=== PATIENT | female | born 1985 | race Hispanic/Latino ===

== ENCOUNTER 2018-10-17 06:47 | Inpatient (IN) | payer OTHER ==
[2018-10-17] MEDS ORDERED: LACTATED RINGERS 1,000 ML ONE (07:02)
[2018-10-17] MEDS ORDERED: AMPICILLIN/NS 2 GM/100 ML 2 GM/100 ML BAG IV ONE ×2 (07:03→09:00)
[2018-10-17] MEDS ORDERED: SUBLIMAZE ONE (07:03)
--- NOTE | 2018-10-17 07:12 | History and Physical Report ---
History of Present Illness Date of examination: 10/17/18 (pt arrived with c/o ctx; Fully dilated on arrival) Date of admission: 10/17/18 06:59 History of present illness: EDC Confirmation: 10/17/2018 Gestational Age: 6 6/7 weeks Past History : 3 Term Births: 2 Premature Births: 0 Living Children: 2 Para: 2 Mult. Births: 0 Prev : 0 Prev. attempt? 0 Aborta: 0 Elect. Ab: 0 Spont. Ab: 0 Ectopics: 0 # 1 Delivery date: 12/30/2012 Weeks Gestation: term Delivery type: Anesthesia type: epidural Delivery location: [facility] Sex: Female weight: 6-11 Comments: denies complications # 2 Delivery date: 06/2015 Weeks Gestation: term Delivery type: Anesthesia type: epidural Delivery location: [facility] Sex: Female weight: 7-8 Comments: denies complications Past Medical History: Negative Past Medical History Past Surgical History: Negative Past Surgical History Past Medical History Surgery (Non-quill collector): Negative Past Surgical History Abnormal PAP: negative REVA Exposure: negative Infertility: negative Uterine Anomaly: negative Uterine Surgery (not C/S): negative Other Gynecologic Problems: negative Infection History Hx of STD: none HIV Risk Eval: low risk Hepatitis B Risk Eval: low risk Personal hx. of genital herpes: no Partner hx. of genital herpes: no Rash, Viral, or Febrile illness since last LMP? no Varicella/Chicken Pox Status: Previous Disease TB Risk: no Genetic History Congenital Heart Defect: Mom: no Dad: no Jori Disease: Mom: no Dad: no Thalassemia Mom: no Dad: no Neural Tube Defect Mom: no Dad: no Down's Syndrome Mom: no Dad: no Alfonso-Sachs Mom: no Dad: no Sickle Cell Disease/Trait Mom: no Dad: no Hemophilia Mom: no Dad: no Muscular Dystrophy Mom: no Dad: no Cystic Fibrosis Mom: no Dad: no Rosetta Chorea Mom: no Dad: no Mental Retardation Mom: no Dad: no Fragile X Mom: no Dad: no Other Genetic/Chromosomal Disorder Mom: no Dad: no Child w/other defect Mom: no Dad: no Enviromental Exposures Xray Exposure: no Medication, drug, or alcohol use since LMP: no Chemical/Other Exposure: no Exposure to Cat Liter: no Hx of Parvovirus (Fifth Disease): no Occupational Exposure to Children: none Active Medications (reviewed today): None Current Allergies (reviewed today): No known allergies Past History - Obstetrical History Expected Date of Delivery: 10/17/18 Actual Gestation: 40 Week(s) 0 Day(s) : 3 Para: 2 Hx # Term Pregnancies: 2 Number of Pregnancies: 0 Spontaneous Abortions: 0 Induced : 0 Number of Living Children: 2 Medications and Allergies Allergies Allergy/AdvReac Type Severity Reaction Status Date / Time No Known Allergies Allergy Verified 10/17/18 07:44 Active Meds: Active Medications Ephedrine Sulfate (Ephedrine Sulfate) 10 mg IV Q2M PRN PRN Reason: Hypotension Fentanyl (Sublimaze) 100 mcg IV Q2H PRN PRN Reason: Labor Pain Oxytocin/Sodium Chloride (Pitocin/Ns 20 Unit/1000ml Drip) 20 units in 1,000 mls @ 125 mls/hr IV DIRECT ISAÍAS Lactated Ringer's (Lactated Ringers) 1,000 mls @ 125 mls/hr IV DIRECT ISAÍAS Ampicillin Sodium (Ampicillin/Ns 1 Gm/50 Ml) 1 gm in 50 mls @ 100 mls/hr IV Q4HR ISAÍAS; Protocol Ampicillin Sodium (Ampicillin/Ns 2 Gm/100 Ml) 2 gm in 100 mls @ 100 mls/hr IV ONCE ONE; Protocol Stop: 10/17/18 08:02 Lidocaine (Xylocaine 2%) 20 ml INFILTRATI ONCE ONE Stop: 10/17/18 07:04 Mineral Oil (Mineral Oil) 30 ml PO QHS PRN PRN Reason: Constipation Ondansetron HCl (Zofran) 4 mg IV Q8H PRN PRN Reason: Nausea And Vomiting Terbutaline Sulfate (Brethine) 0.25 mg SUB-Q ONCE PRN PRN Reason: Hyperstimulation/Hypertonicity Terbutaline Sulfate (Brethine) 0.25 mg IVP ONCE PRN PRN Reason: Hyperstimulation/Hypertonicity - Physical Exam Breasts: Positive: deferred Cardiovascular: Regular rate, Normal S1, Normal S2 Lungs: Positive: Normal air movement Abdomen: Positive: normal appearance, soft, normal bowel sounds. Negative: distention, tenderness Genitourinary (Female): Positive: normal external genitalia Vulva: both: normal Vagina: Positive: normal moisture. Negative: discharge Cervix: Negative: lesion, discharge Uterus: Positive: normal size, normal contour Adnexa: both: normal Anus/Rectum: Positive: normal perianal skin, heme negative. Negative: rectal mass, hemorrhoids Extremities: Positive: normal Deep Tendon Reflex Grade: Normal +2 - Obstetrical FHR: category 1 Uterine Contraction Monitor Mode: External Cervical Dilatation: 10 (BBOW) Cervical Effacement Percentage: 100 station: -1 Uterine Contraction Pattern: Regular Uterine Tone Measurement Phase: Resting Uterine Contraction Intensity: Strong/Firm Results Result Diagrams: 10/17/18 07:15 All other labs normal. GBS POSITIVE HBsAg Screen Negative Negative *1 RPR Non Reactive Non Reactive *2 Rubella Antibodies, IgG 4.97 index Immune >0.99 *3 Non-immune <0.90 Equivocal 0.90 - 0.99 Immune >0.99 ABO Grouping B *4 Rh Factor Positive *5 Please note: Prior records for this patient's ABO / Rh type are not available for additional verification. Antibody Screen Negative Negative *6 WBC 8.1 x10E3/uL 3.4-10.8 *7 RBC 3.91 x10E6/uL 3.77-5.28 *8 Hemoglobin 11.6 g/dL 11.1-15.9 *9 Hematocrit 34.2 % 34.0-46.6 *10 MCV 88 fL 79-97 *11 MCH 29.7 pg 26.6-33.0 *12 MCHC 33.9 g/dL 31.5-35.7 *13 RDW 14.3 % 12.3-15.4 *14 Platelets 255 x10E3/uL 150-379 *15 Neutrophils 74 % Not Estab. *16 Lymphs 17 % Not Estab. *17 Monocytes 6 % Not Estab. *18 Eos 3 % Not Estab. *19 Basos 0 % Not Estab. *20 ! Immature Cells <No Reported Value> *21 Neutrophils (Absolute) 5.9 x10E3/uL 1.4-7.0 *22 Lymphs (Absolute) 1.4 x10E3/uL 0.7-3.1 *23 Monocytes(Absolute) 0.5 x10E3/uL 0.1-0.9 *24 Eos (Absolute) 0.3 x10E3/uL 0.0-0.4 *25 Baso (Absolute) 0.0 x10E3/uL 0.0-0.2 *26 ! Immature Granulocytes 0 % Not Estab. *27 ! Immature Grans (Abs) 0.0 x10E3/uL 0.0-0.1 *28 ! NRBC <No Reported Value> *29 Hematology Comments: <No Reported Value> *30 Tests: (2) Panel 990775 ([id number]) HIV Screen 4th Generation wRfx Non Reactive Non Reactive *31 Tests: (3) HCV Ab w/Rflx to Verification (405498) ! HCV Ab <0.1 s/co ratio 0.0-0.9 *32 Tests: (4) Comment: (850388) ! Comment: SPRCS *33 Non reactive HCV antibody screen is consistent with no HCV infection, unless recent infection is suspected or other evidence exists to indicate HCV infection. Tests: (5) Urine Culture, Routine ([id number]) Urine Culture, Routine Final report *34 Tests: (6) Result ([id number]) ! Result 1 MUG *35 Mixed urogenital kathy Greater than 100,000 colony forming units per mL Assessment and Plan 32yo @ 40 weeks in active labor imminent delivery Fully dilated on arrival GBS positive will attempt to treat Orders in EMR
[2018-10-17 07:30] LABS: Hematocrit 38.3 % (30.3-42.9); Hemoglobin 12.9 gm/dl (10.1-14.3); Mean Corpuscular HGB Conc 34 % (30-34); Mean Corpuscular Volume 90 fl (79-97); Platelet Count 220 K/mm3 (140-440); Red Blood Count 4.25 M/mm3 (3.65-5.03); Red Cell Distribution Width 14.1 % (13.2-15.2)
[2018-10-17] MEDS ORDERED: PITOCin/NS 20 UNIT/1000ML DRIP 20 UNITS/1,000 ML BAG IV SCH (08:00)
[2018-10-17] MEDS ORDERED: LACTATED RINGERS 1,000 ML IV SCH (08:00)
--- NOTE | 2018-10-17 08:10 | Procedure Note ---
OB Delivery Note - Delivery Date of Delivery: 10/17/18 Prevention Rn: JUAN LOPEZ (SROM Meconium) Estimated blood loss: 300cc - Vaginal Delivery presentation: vertex Delivery position: OA Intrapartum events: meconium, mult.variable deceleratio Delivery induction: none Delivery monitor: external FHT, external uterine Route of delivery: Delivery placenta: spontaneous Delivery cord: nuchal cord (tight delivered over head after baby had delivered), 3 umbilical vessels Episiotomy: midline Delivery laceration: 2nd degree Delivery repair: vicryl Anesthesia: local Delivery comments: called to room when pt had SROM light green meconium NICU called for delivery live born male over 2nd degree episiotomy CAN X 1 reduced. Baby to waiting NICU team. Placenta delivered complete and intact, 3 vessel cord. Pit IVFs. Repair with 2-0 vicry over lidocaine. 6/8, EBL 300, Wgt 8-2. Mom and baby remain LDR stable. - A at 1 minute: 6 at 5 minutes: 8 Gender: Male (wgt 8-2)
[2018-10-17] MEDS ORDERED: XYLOCAINE 2% INFILTRATI NR (08:30)
[2018-10-17] MEDS ORDERED: ZOFRAN IV PRN (08:30)
[2018-10-17] MEDS ORDERED: BRETHINE SUB-Q PRN (08:30)
[2018-10-17] MEDS ORDERED: BRETHINE IVP PRN (08:30)
[2018-10-17] MEDS ORDERED: NARCAN 2 MG/2 ML IV PRN (08:30)
[2018-10-17] MEDS ORDERED: SUBLIMAZE IV PRN (08:30)
[2018-10-17] MEDS ORDERED: MINERAL OIL PO PRN (09:00)
[2018-10-17] MEDS ORDERED: fentaNYL-BUPIV 2 MCG/ML-0.125% 200 MCG/100 ML BAG EPIDURAL SCH (09:00)
[2018-10-17] MEDS ORDERED: LANSINOH TP PRN (10:27)
[2018-10-17] MEDS ORDERED: TUCKS PAD TP PRN (10:27)
[2018-10-17] MEDS ORDERED: IBUPROFEN PO SCH (10:27)
[2018-10-17] MEDS ORDERED: BENADRYL PO PRN (10:27)
[2018-10-17] MEDS ORDERED: TYLENOL PO PRN (10:27)
[2018-10-17] MEDS ORDERED: SODIUM CHLORIDE FLUSH SYRINGE 10 ML IV NR (10:27)
[2018-10-17] MEDS ORDERED: PHENERGAN PO PRN (10:27)
[2018-10-17] MEDS ORDERED: MILK OF MAGNESIA PO PRN (10:27)
[2018-10-17] MEDS ORDERED: DULCOLAX PR PRN (10:27)
[2018-10-17] MEDS: COLACE PO SCH (10:49)
[2018-10-17] MEDS ORDERED: AMPICILLIN/NS 1 GM/50 ML 1 GM/50 ML BAG IV SCH (11:00)
[2018-10-17] MEDS: IBUPROFEN PO SCH (13:43)
[2018-10-17 20:18] LABS: Hematocrit 32.6 % (30.3-42.9); Hemoglobin 10.7 gm/dl (10.1-14.3)
[2018-10-18] MEDS: COLACE PO SCH ×2 (00:44→08:39)
[2018-10-18] MEDS: IBUPROFEN PO SCH ×3 (00:49→14:01)
--- NOTE | 2018-10-18 08:11 | Discharge Summary ---
Providers - Providers Date of Admission: 10/17/18 06:59 Date of discharge: 10/19/18 (desires d/c home [facility]) Attending physician: FRANKIE RIOS Primary care physician: FRANKIE RIOS Hospitalization Reason for admission: labor Condition: Good Pertinent studies: H&H 10.7/32.6 Procedures: Hospital course: uncomplicated and course Disposition: DC-01 TO HOME OR SELFCARE - Discharge Diagnoses (1) Spontaneous vaginal delivery Status: Acute Core Measure Documentation - Palliative Care Palliative Care/ Comfort Measures: Not Applicable - Core Measures Any of the following diagnoses?: none Exam - Constitutional Vitals: Temp Pulse Resp BP Pulse Ox 98.7 F 76 18 102/67 99 10/18/18 00:00 10/18/18 00:00 10/18/18 00:00 10/18/18 00:00 10/17/18 07:57 General appearance: Present: no acute distress, well-nourished - EENT Eyes: Present: PERRL ENT: hearing intact, clear oral mucosa - Neck Neck: Present: supple, normal ROM - Respiratory Respiratory effort: normal Respiratory: bilateral: CTA - Cardiovascular Heart Sounds: Present: S1 & S2. Absent: rub, click - Extremities Extremities: pulses symmetrical, No edema Peripheral Pulses: within normal limits - Abdominal General gastrointestinal: Present: soft, non-tender, non-distended, normal bowel sounds Female genitourinary: Present: normal - Integumentary Integumentary: Present: clear, warm, dry - Musculoskeletal Musculoskeletal: gait normal, strength equal bilaterally - Psychiatric Psychiatric: appropriate mood/affect, intact judgment & insight - Neurologic Neurologic: CNII-XII intact, moves all extremities - Additional findings Additional findings: lochia scant, fundus firm, Plan Activity: no restrictions Diet: regular Follow up with: FRANKIE RIOS MD [Primary Care Provider] - 7 Days (Congratulations! Please call [phone] to schedule your son's circumcision in 1 week and your visit in 4 weeks. Bring EMLA cream to your son's appointment and await further teaching. Call for any questions or concerns. ) Prescriptions: Lidocain2.5%/Prilocai2.5% [Emla] 5 gm TP ONCE PRN #1 tube PRN Reason: Pain Ibuprofen [Motrin 800 MG tab] 800 mg PO Q8HR PRN #30 tablet PRN Reason: Pain
[2018-10-19] MEDS: IBUPROFEN PO SCH ×2 (00:41→06:23)
[2018-10-19 08:45] VITALS: BP 97/62
== END 2018-10-19 10:10 | disposition home or self-care (01) | DRG 807 ==
LOC: TRG 06:47 → LD 06:59 → OB 10:03
PROVIDERS: ADMIT Obstetrics & Gynecology; ATTEND Obstetrics & Gynecology
PROC: 10E0XZZ Delivery of Products of Conception, External Approach (ICD-10-PCS; principal; 2018-10-17)
PROC: 0KQM0ZZ Repair Perineum Muscle, Open Approach (ICD-10-PCS; 2018-10-17)
DX: O99.824 Streptococcus B carrier state complicating childbirth (principal); Z37.0 Single live birth; O77.0 Labor and delivery complicated by meconium in amniotic fluid; O76 Abnormality in fetal heart rate and rhythm complicating labor and delivery; O69.1XX0 Labor and delivery complicated by cord around neck, with compression, not applicable or unspecified; O70.1 Second degree perineal laceration during delivery; Z3A.40 40 weeks gestation of pregnancy
CPT/HCPCS: 36415; 85014; 85018; 85027; 86592; 86850; 86900; 86901; G0378; A6250; J0290; J2590; J3010; J7120